=== PATIENT | male | born 1935 | race Caucasian/White ===

== ENCOUNTER 2017-07-03 07:55 | Day surgery (SDC) | payer OTHER ==
[2017-06-30 13:43] VITALS: BMI 21.7
[2017-07-03] MEDS ORDERED: LIDOCAINE HCL/PF 2% SDV 5ML VIAL ONE (08:03)
[2017-07-03] MEDS ORDERED: PROPOFOL 20 ML ONE ×3 (08:03→09:59)
[2017-07-03 10:23] VITALS: PULSE 64
[2017-07-03 11:05] VITALS: BP 119/65; TEMP 98
--- NOTE | 2017-07-04 15:24 | PATH ---
Surgical Pathology Report Patient Name: MARIELENA PANIAGUA [facility]. Rec. #: [id number] /Age/Gender: 1935 (Age: 81) / M Account: [id number] Location: [facility]-ENDOSCOPY Taken: 07/03/2017 Received: 07/03/2017 Reported: 07/04/2017 Physicians: Mathieu Solis M.D. Specimen(s) Received BX RECTUM Clinical History Polyps Final Diagnosis RECTUM, BIOPSY: HYPERPLASTIC POLYP. Electronically Signed Tracee Sarabia M.D. Gross Description Received in formalin, labeled "rectum" are 2 masy, irregular portions of soft tissue averaging 0.3 cm. in greatest dimension. The specimens are submitted in toto in one cassette. /07/03/201707/03/2017
== END 2017-07-03 11:06 | disposition home or self-care (01) ==
LOC: FASU-ENDO 07:55
PROVIDERS: ATTEND Internal Medicine Gastroenterology
PROC: 0DBP8ZX Excision of Rectum, Via Natural or Artificial Opening Endoscopic, Diagnostic (ICD-10-PCS; principal; 2017-07-03 09:50)
DX: Z86.010 Personal history of colon polyps (principal); K63.5 Polyp of colon; K57.30 Diverticulosis of large intestine without perforation or abscess without bleeding
CPT/HCPCS: 88305-TC